=== PATIENT | male | born 1975 | race Caucasian/White ===

== ENCOUNTER 2016-11-30 09:25 | Emergency (ER) | payer OTHER ==
--- NOTE | 2016-11-30 09:38 | PDOC ---
History of Present Illness - General Chief Complaint: Injury Stated Complaint: LEFT ANKLE PAIN Time Seen by Provider: 11/30/16 09:35 History Source: Patient Exam Limitations: No Limitations - History of Present Illness Initial Comments: 11/30/16 09:38 This is a 41 yo M with a history of HTN, HLD, anxiety who presents to the ER s/ p ankle injury Pt states he was walking outside and carrying something He slipped and fell When he got up, he noted severe left ankle pain and difficulty bearing weight He has pain laterally PMH: HTN, lumbar disc herniation PSH:denies Meds: Lisinopril ALL: NKDA Social: denies drug use GENERAL/CONSTITUTIONAL: No: fever, chills, weakness, loss of appetite. HEAD, EYES, EARS, NOSE AND THROAT: No: change in vision, ear pain, discharge, sore throat, throat swelling. MUSCULOSKELETAL: Yes: left ankle pain No: back pain, neck pain, muscle swelling or pain SKIN: No: lesions, pallor, rash or easy bruising. GENERAL: The patient is in no acute distress. HEAD: Normal with no signs of trauma. EYES: PERRLA, EOMI, sclera anicteric, conjunctiva clear. ENT: Ears normal, nares patent, oropharynx clear without exudates. Moist mucous membranes. EXTREMITIES: Normal range of motion of hips and knees, and right ankle NEUROLOGICAL: Cranial nerves II through XII grossly intact. Normal speech. No focal neurological deficits. MUSCULOSKELETAL: Left malleolar tenderness to palpation, mild swelling, no tenderness over the lateral metatarsal SKIN: Warm, Dry, normal turgor, no rashes or lesions noted. 11/30/16 09:51 12/01/16 07:21 Past History - Past Medical History Allergies/Adverse Reactions: Allergies Allergy/AdvReac Type Severity Reaction Status Date / Time No Known Allergies Allergy Verified 11/30/16 09:49 Home Medications: Ambulatory Orders Lisinopril [Prinivil] 20 mg PO DAILY 11/30/16 HTN: Yes Hypercholesterolemia: Yes Psychiatric Problems: Yes (anxiety) - Psycho/Social/Smoking Cessation Hx Anxiety: Yes Suicidal Ideation: No Smoking History: Never smoked 'Breaking Loose' booklet given: 10/24/15 Hx Alcohol Use: No Drug/Substance Use Hx: No Substance Use Type: None Medical Decision Making - Medical Decision Making 11/30/16 09:54 Likely ankle sprain Possible distal fibular fracture Will do: xray left ankle and foot Will give motrin for pain RE assess 11/30/16 10:33 Xray no fracture (+) Sprain Will discharge with aircast *DC/Admit/Observation/Transfer Diagnosis at time of Disposition: Ankle sprain Qualifiers: Encounter type: initial encounter Involved ligament of ankle: calcaneofibular ligament Laterality: left Qualified Code(s): S93.412A - Sprain of calcaneofibular ligament of left ankle, initial encounter - Discharge Dispostion Disposition: HOME Condition at time of disposition: Good Admit: No - Referrals Referrals: Jonathan Wisdom MD [Primary Care Provider] - Neto Morales MD [Staff Physician] - - Patient Instructions Printed Discharge Instructions: DI for Ankle Pain, DI for Ankle Sprain Additional Instructions: Noel Thank you for coming in to the ER today I am sorry this happened Your x ray shows no fracture Please ice and elevate as much as possible Please wear air cast and/or yuridia bandage as is tolerable Follow up with your primary care physician as needed - Post Discharge Activity Work/School Note: Back to Work
[2016-11-30] MEDS ORDERED: IBUPROFEN 600 MG TABLET (FP) PO ONE ×2 (09:49→09:56)
[2016-11-30 09:58] VITALS: BP 126/90; PULSE 90; TEMP 97.7; BMI 34.4
== END 2016-11-30 10:41 | disposition home or self-care (01) ==
LOC: FER 09:25
PROC: 2W3TX1Z Immobilization of Left Foot using Splint (ICD-10-PCS; principal; 2016-11-30)
DX: S93.412A Sprain of calcaneofibular ligament of left ankle, initial encounter (principal); W18.39XA Other fall on same level, initial encounter; Y93.89 Activity, other specified; Y92.410 Unspecified street and highway as the place of occurrence of the external cause; I10 Essential (primary) hypertension; E78.5 Hyperlipidemia, unspecified; F41.9 Anxiety disorder, unspecified
CPT/HCPCS: 73610-TC-LT; 73630-TC-LT; 99282-25